=== PATIENT | male | born 1950 | race Caucasian/White ===

== ENCOUNTER 2021-09-20 10:55 | Emergency (ER) | payer BC, OTHER ==
[~2021-09-20] VITALS: Ht 177.8 cm; Wt 108.9 kg
[2021-09-20] MEDS ORDERED: ONDANSETRON HCL 4 MG/2 ML VIAL IV ONE (11:15)
[2021-09-20] MEDS ORDERED: MORPHINE SULFATE 4 MG/ML SYR/VIAL IV ONE (11:15)
[2021-09-20 13:35] LABS: Basophils # (auto) 0 10 ^3/uL (0-0.2); Basophils % (auto) 0.4 % (0.0-2.0); Eosinophils # (auto) 0.2 10 ^3/uL (0-0.8); Eosinophils % (auto) 1.7 % (0.0-7.0); Hematocrit 49.7 % (41.0-53.0); Hemoglobin 16.7 g/dL (13.5-17.5); Lymphocytes # (auto) 1.8 10 ^3/uL (0.4-5.4); Lymphocytes % (auto) 16.1 % (10.0-50.0); Mean Corpuscular Hemoglobin 30.6 pg (28.0-32.0); Mean Corpuscular Hgb Conc. 33.7 g/dL (32.0-36.0); Mean Corpuscular Volume 90.9 fL (80.0-100.0); Monocytes # (auto) 0.6 10 ^3/uL (0-1.3); Neutrophils # (auto) 8.7 10 ^3/uL (1.6-8.6); Neutrophils % (auto) 76.8 % (37.0-80.0); Red Blood Cells 5.47 10^6/uL (4.5-5.90); Red Cell Distribution Width 13.3 % (11.8-14.3); White Blood Cell 11.4 10^3/uL (4.4-10.8)
[2021-09-20 14:09] LABS: Albumin 4.1 g/dL (3.4-5.0); Calcium 9.5 mg/dL (8.5-10.1); Magnesium 1.7 mg/dL (1.6-2.6); Potassium 3.9 mmol/L (3.5-5.1)
[2021-09-20 14:15] LABS: BUN/Creatinine Ratio 15.9; Bilirubin, Total 1.2 mg/dL (0.2-1.0)
[2021-09-20 16:28] VITALS: BP 145/108
== END 2021-09-20 16:55 | disposition home or self-care (01) ==
LOC: ER 10:55 → EDBD 10:55 → ER 16:50
DX: S20.229A Contusion of unspecified back wall of thorax, initial encounter (principal); I10 Essential (primary) hypertension; E11.9 Type 2 diabetes mellitus without complications; Z86.73 Personal history of transient ischemic attack (TIA), and cerebral infarction without residual deficits; W19.XXXA Unspecified fall, initial encounter; Y93.89 Activity, other specified; Y92.89 Other specified places as the place of occurrence of the external cause; Y99.8 Other external cause status
CPT/HCPCS: 36415; 70450; 72131; 80053; 83735; 85025; 93005; 96374; 96375; 99285; J2270; J2405